=== PATIENT | female | born 1960 | race Caucasian/White ===

== ENCOUNTER 2017-01-07 08:29 | Outpatient (CLI) | payer BC ==
--- NOTE | 2017-01-07 15:12 | DEXA Report ---
DEXA SCAN: 01/07/2017 CLINICAL HISTORY: Postmenopausal. TECHNIQUE: Dual energy x-ray absorptiometry (DXA) was performed on a [employer] system. Regions measured are the AP spine, femoral neck, and, if needed, forearm. COMPARISON: None. In accordance with the International Society for Clinical Densitometry (ISCD) guidelines, data from previous exams may be reanalyzed using current recommendations and techniques. This is done to allow a more accurate basis for comparison with the current study. FINDINGS: The data for the lumbar spine is as follows: REGION BMD (g/cm/cm) T-SCORE Z-SCORE L1 0.849 -2.3 -1.2 L2 0.894 -2.5 -1.4 L3 0.942 -2.1 -1.0 L4 0.999 -1.7 -0.5 TOTAL 0.925 -2.1 -1.0 NOTE: All evaluable vertebrae are used for classification. The data for the hip is as follows: REGION BMD (g/cm/cm) T-SCORE Z-SCORE Neck 0.762 -2.0 -0.8 TOTAL 0.792 -1.7 -0.8 NOTE: The femoral neck or total proximal femur, whichever is lowest, is used for classification. * Denotes significant change at the 95% confidence level. Denotes dissimilar scan types or analysis methods. IMPRESSION: THE WHO CLASSIFICATION BASED ON THE INTERNATIONAL REFERENCE STANDARD IS OSTEOPENIA. THE FRACTURE RISK IS INCREASED. RECOMMENDATION: Patients with diagnosis of osteoporosis or osteopenia should have regular bone mineral density assessment. For those eligible for Medicare, routine testing is allowed once every 2 years. Testing frequency can be increased for patients who have rapidly progressing disease or for those who are receiving medical therapy to restore bone mass. COMMENT: World Health Organization (WHO) definitions for osteoporosis and osteopenia: NORMAL BMD: T-score at -1.0 or higher, fracture risk is low. OSTEOPENIA BMD: T-score between -1.0 and -2.5, fracture risk is increased. OSTEOPOROSIS BMD: T-score at -2.5 or lower, fracture risk high. National Osteoporosis Foundation recommends: 1. Obtain adequate dietary calcium (at least 1200 mg per day) and vitamin D (400 -800 international units per day). 2. Participate, as appropriate, in regular weightbearing and muscle- strengthening exercise. 3. Avoid tobacco use and reduce alcohol and caffeine intake. 4. For more detailed information see the website at www.NOF.org. MTDD
== END 2017-01-07 08:30 | disposition home or self-care (01) ==
LOC: DI 08:29
PROVIDERS: ATTEND Physician Assistant
DX: M85.89 Other specified disorders of bone density and structure, multiple sites (principal)
CPT/HCPCS: 77080

== ENCOUNTER 2017-01-16 10:10 | Outpatient (CLI) | payer BC ==
--- NOTE | 2017-01-18 13:55 | Mammography Report ---
DIGITAL SCREENING MAMMOGRAM: 01/16/2017 CLINICAL INDICATION: A 57-year-old with history of late childbearing, history of benign excisional b iopsy for screening. COMPARISON: 11/2012, 10/2011, 08/2010, 04/2009, 12/2006. TECHNIQUE: Routine CC and MLO projections were obtained of the breasts as well as bilateral laterall y exaggerated craniocaudal views. FINDINGS: The breasts again demonstrate heterogeneously dense fibroglandular parenchyma bilaterally. Punctate, typically benign calcifications are present. In the right upper outer posterior breast, there is a possible developing density. Further evaluation with spot compression views and possible ultrasound is recommended. No mammographically suspicious findings are appreciated in the left breas t. IMPRESSION: INCOMPLETE EXAMINATION. RECOMMENDATION: Additional evaluation of the right breast as above. BI-RADS category 0, incomplete. STANDARD QUALIFYING STATEMENTS 1. This examination was reviewed with the aid of Computer-Aided Detection (CAD). 2. A negative or benign imaging report should not delay biopsy if clinically suspicious findings are present. Consider surgical consultation if warranted. More than 5% of cancers are not identified by i maging. 3. Dense breasts may obscure an underlying neoplasm. JOB #: [id number] EXT JOB #:[id number]
== END 2017-01-16 10:11 | disposition home or self-care (01) ==
LOC: DI.S 10:10
PROVIDERS: ATTEND Physician Assistant
DX: Z12.31 Encounter for screening mammogram for malignant neoplasm of breast (principal); R92.8 Other abnormal and inconclusive findings on diagnostic imaging of breast
CPT/HCPCS: 77067

== ENCOUNTER 2017-02-13 13:14 | Outpatient (CLI) | payer BC ==
--- NOTE | 2017-02-13 15:54 | Ultrasound Report ---
RIGHT BREAST ULTRASOUND: 02/13/2017 CLINICAL INDICATION: Persistent nodule on mammogram. TECHNIQUE: Real-time scanning was performed with community representative static images obtained. FINDINGS: Ultrasound of the right outer breast was performed. At the 9:30 position, 7 cm from the nipple, there is a hypoechoic lobulated nodule measuring 1.2 x 0. 8 x 0.9 cm. The appearance is suspicious. Internal vascularity is seen. Scanning of the right axilla does not demonstrate lymphadenopathy. IMPRESSION: SUSPICIOUS SOLID NODULE IN THE RIGHT OUTER BREAST, CORRELATING WITH THE MAMMOGRAPHIC ABN ORMALITY. RECOMMENDATION: BIOPSY. THE NODULE APPEARS AMENABLE TO ULTRASOUND-GUIDED CORE NEEDLE BIOPSY. BIRADS CATEGORY 4-SUSPICIOUS ABNORMALITY. Results and recommendations discussed with the patient at the time of the examination, and called to the office of Jyothi Magallon PA-C, on 02/13/2017. Biopsy is scheduled for 02/20/2017 at 12:30 p.m. JOB #: [id number] EXT JOB #:[id number]
--- NOTE | 2017-02-13 16:06 | Mammography Report ---
DIGITAL DIAGNOSTIC RIGHT MAMMOGRAM: 02/13/2017 CLINICAL INDICATION: Possible developing density right posterior outer breast. TECHNIQUE: Right true lateral and spot compression views. COMPARISON: 01/16/2017, 12/08/2012, 10/18/2011, 08/25/2010, 05/02/2009, 2006. FINDINGS: The right breast again demonstrates scattered fibroglandular densities. The density in question, in the right outer posterior breast, does not dissipate on additional compression. It measures approximately 1 cm in diameter. No associated calcifications are seen. Please also refer to right breast ultrasound of the same day. IMPRESSION: SUSPICIOUS ABNORMALITY, WITH A SOLID SHADOWING NODULE ON ULTRASOUND CORRELATING WITH THE MAMMOGRAPHIC ABNORMALITY. RECOMMENDATION: BIOPSY. THE NODULE APPEARS AMENABLE TO ULTRASOUND-GUIDED CORE NEEDLE BIOPSY. BIRADS CATEGORY 4-SUSPICIOUS ABNORMALITY. Results and recommendations discussed with the patient at the time of the examination, and called to the office of Pricilla Magallon PA-C, on 2016. Biopsy is scheduled for 02/20/2017 at 12:30 p.m. STANDARD QUALIFYING STATEMENTS 1. This examination was reviewed with the aid of Computer-Aided Detection (CAD). 2. A negative or benign imaging report should not delay biopsy if clinically suspicious findings are present. Consider surgical consultation if warranted. More than 5% of cancers are not identified by imaging. 3. Dense breasts may obscure an underlying neoplasm. JOB #: [id number] EXT JOB #: [id number] DOYLE
== END 2017-02-13 13:15 | disposition home or self-care (01) ==
LOC: DI 13:14
PROVIDERS: ATTEND Physician Assistant
DX: N63 Unspecified lump in breast (principal)
CPT/HCPCS: 76642

== ENCOUNTER 2017-02-20 12:15 | Outpatient (CLI) | payer BC ==
[~2017-02-20 12:15] MED LIST: BUFFERED LIDOCAINE 10 ML SYRINGE IU ONE; BUPIVACAINE 0.5%-EPI 1:200000 PF 10 ML VIAL ID ONE
[2017-02-20 17:15] VITALS: BP 123/81
--- NOTE | 2017-02-21 09:17 | Ultrasound Report ---
ULTRASOUND-GUIDED CORE NEEDLE BIOPSY RIGHT BREAST: 02/20/2017 CLINICAL INDICATION: An 1.1 cm nodule right outer breast. FINDINGS: Informed consent was obtained. Using standard aseptic technique, both 1% buffered lidocain e and Sensorcaine were injected into the right breast for local anesthesia. A small heidi was made in the skin with a #11 blade. A 12-gauge Celero vacuum-assisted device was used to obtain three specimen s. A Celero marker was placed into the biopsy cavity under ultrasound guidance. The patient was taken to a separate mammography machine and a two view digital mammogram was performe d, documenting the marker in the expected location and no significant postbiopsy hematoma. The wound was dressed and ice applied. The patient was observed for approximately 15 minutes, then wa s discharged from [facility] in good condition following instructions on wound care and obtai dewayne biopsy results. The tissue was sent for histologic analysis. IMPRESSION: ULTRASOUND-GUIDED CORE NEEDLE BIOPSY OF THE RIGHT BREAST. AN ADDENDUM WILL BE MADE TO THIS REPORT WHEN PATHOLOGY IS REVIEWED TO ESTABLISH CONCORDANCE. :9 JOB #: [id number] EXT JOB #:[id number]
--- NOTE | 2017-03-11 11:09 | Mammography Report ---
EXAM: [id number] [place] EM[facility] ([id number]) ULTRASOUND-GUIDED CORE NEEDLE BIOPSY RIGHT BREAST: 02/20/2017 CLINICAL INDICATION: An 1.1 cm nodule right outer breast. FINDINGS: Informed consent was obtained. Using standard aseptic technique, both 1% buffered lidocaine and Sensorcaine were injected into the right breast for local anesthesia. A small heidi was made in the skin with a #11 blade. A 12- gauge Celero vacuum-assisted device was used to obtain three specimens. A Celero marker was placed into the biopsy cavity under ultrasound guidance. The patient was taken to a separate mammography machine and a two view digital mammogram was performed, documenting the marker in the expected location and no significant postbiopsy hematoma. The wound was dressed and ice applied. The patient was observed for approximately 15 minutes, then was discharged from [facility] in good condition following instructions on wound care and obtaining biopsy results. The tissue was sent for histologic analysis. IMPRESSION: ULTRASOUND-GUIDED CORE NEEDLE BIOPSY OF THE RIGHT BREAST. AN ADDENDUM WILL BE MADE TO THIS REPORT WHEN PATHOLOGY IS REVIEWED TO ESTABLISH CONCORDANCE. :9 JOB #: [id number] EXT JOB #: [id number] Process Control Supervisor: Reading Radiologist: Angel David MD Releasing Radiologist: Angel David MD Released Date Time: 02/21/17 0937 <Electronically signed by Angel David MD> cc: AURORA Black ADDENDUM ADDENDUM: ULTRASOUND-GUIDED CORE NEEDLE BIOPSY OF THE RIGHT BREAST OF 02/20/2017 ADDENDUM: The procedure performed by Dr. David. Pathology reviewed by Dr. David. Final pathology results are malignant, demonstrating invasive ductal carcinoma. These results are concordant with the imaging findings. RECOMMENDATION: SURGICAL FOLLOWUP WITH TREATMENT PLANNING. Consider preoperative breast MRI for surgical planning at the surgeon's discretion. The patient has been scheduled to obtain results from AYALA Trevizo on 02/26 at 8:30 a.m. END OF ADDENDUM Addendum Process Control Supervisor: AMINA Addendum Reading Radiologist: Angel David MD Addendum Releasing Radiologist: Angel David MD Addendum Released Date Time: 02/25/17 1327 MTDD
== END 2017-02-20 12:16 | disposition home or self-care (01) ==
LOC: DI 12:15
PROVIDERS: ATTEND Physician Assistant
DX: C50.911 Malignant neoplasm of unspecified site of right female breast (principal); Z17.0 Estrogen receptor positive status [ER+]
CPT/HCPCS: 19083; 88305; 88341; 88342; 88360

== ENCOUNTER 2017-12-02 10:29 | Day surgery (SDC) | payer OTHER ==
[2017-12-02] MEDS ORDERED: LACTATED RINGERS 1,000 ML IV ONE (10:53)
[2017-12-02] MEDS ORDERED: fentaNYL 250 MCG/5 ML VIAL IVP ONE (11:56)
[2017-12-02] MEDS ORDERED: MIDAZOLAM 2 MG/2 ML VIAL IVP ONE (11:56)
[2017-12-02 12:49] VITALS: BP 120/71
== END 2017-12-02 10:30 | disposition home or self-care (01) ==
LOC: SDS 10:29
PROVIDERS: ATTEND Surgery
PROC: 0DJD8ZZ Inspection of Lower Intestinal Tract, Via Natural or Artificial Opening Endoscopic (ICD-10-PCS; principal; 2017-12-02 11:45)
DX: Z12.11 Encounter for screening for malignant neoplasm of colon (principal); K64.8 Other hemorrhoids; Z80.0 Family history of malignant neoplasm of digestive organs
CPT/HCPCS: 45378; J7120

== ENCOUNTER 2019-09-01 08:08 | Outpatient (CLI) | payer BC, OTHER ==
--- NOTE | 2019-09-01 09:02 | XRAY Report ---
Reason: PAIN IN LT ARM Procedure Date: 09/01/2019 Accession Number: [id number] / [id number] Procedure: XRS - Humerus LT CPT Code: Final Report FULL RESULT: EXAM: LEFT HUMERUS RADIOGRAPHY EXAM DATE: 09/01/2019 08:30 AM. CLINICAL HISTORY: Left arm pain. COMPARISON: None. TECHNIQUE: 2 views. FINDINGS: Bones: Normal. No fractures or bone lesions. Joints: Normal. No effusions or subluxations in the visualized shoulder or elbow joints. Soft Tissues: Normal. No soft tissue swelling. IMPRESSION: Normal humerus radiography. RADIA
--- NOTE | 2019-09-01 09:02 | XRAY Report ---
Reason: PAIN IN LT SHLDR Procedure Date: 09/01/2019 Accession Number: [id number] / [id number] Procedure: XRS - Shoulder 3 View LT CPT Code: Final Report FULL RESULT: EXAM: LEFT SHOULDER RADIOGRAPHY EXAM DATE: 09/01/2019 08:30 AM. CLINICAL HISTORY: Left shoulder pain. COMPARISON: None. TECHNIQUE: 3 views. FINDINGS: Bones: Bones are questionably osteopenic. No fractures or bone lesions. Joints: Minimal glenohumeral joint degenerative disease is seen. Minimal acromioclavicular degenerative joint disease is seen. Alignment is preserved. Soft tissues: The visualized hemithorax is unremarkable. No soft tissue swelling. IMPRESSION: Minor shoulder DJD changes seen. Possible osteopenia. No acute findings. RADIA
== END 2019-09-01 08:09 | disposition home or self-care (01) ==
LOC: DI.S 08:08
PROVIDERS: ATTEND Registered Nurse
DX: M19.012 Primary osteoarthritis, left shoulder (principal); M79.602 Pain in left arm

== ENCOUNTER 2020-08-31 08:44 | Outpatient (CLI) | payer OTHER ==
--- OUTSIDE RECORDS SUMMARY | 2020-08-31 08:47 | EXTERNAL MEDICAL SUMMARY RPT | Continuity of Care Document ---
:1960 Demographics Phone Unavailable Preferred Language Unknown Marital Status Unknown Mu-Ism Affiliation Unknown Race Unknown Ethnic Group Unknown Author Organization [place] Address [address] [phone] Phone Care Team Providers Name Role Phone Magallon Unavailable Unavailable Problems date description facility 2017-12-02 10:29 OTHER HEMORRHOIDS [facility] 2017-12-02 10:29 ENCOUNTER FOR SCREENING FOR [facility] MALIGNANT NEOPLASM OF COLON 2017-12-02 10:29 [facility] NEOPLASM OF DIGESTIVE ORGANS 2019-09-01 08:08 PRIMARY OSTEOARTHRITIS, LEFT [facility] SHOULDER 2019-09-01 08:08 PAIN IN LEFT ARM [facility] Allergies date description facility NO KNOWN ALLERGIES [facility] ERYTHROMYCIN BASE [facility] Social History date description facility [id number]
--- NOTE | 2020-08-31 13:55 | DEXA Report ---
PROCEDURE: Dexa Spine and/or Hip INDICATIONS: OSTEOPENIA TECHNIQUE: Dual energy x-ray absorptiometry (DXA) was performed on a [employer] System. Regions measur ed are the AP Spine, femoral neck, and if needed forearm. COMPARISON: 01/07/2017. FINDINGS: Lumbar Spine: Bone Mineral Density 1.052 g/cm/cm,T score -1.1, osteopenia Left Femoral Neck: Bone Mineral Density 0.787 g/cm/cm, T score -1.8, osteopenia (T score greater or equal to -1.0: NORMAL) (T score from -1.1 to -2.4: OSTEOPENIA) (T score less than or equal to -2.5 to: OSTEOPOROSIS) Impression: Osteopenia; patient is at increased risk for fracture Patients with diagnosis of osteoporosis or osteopenia should have regular bone mineral density assess ment. For those eligible for Medicare, routine testing is allowed once every 2 years. Testing frequ ency can be increased for patients who have rapidly progressing disease or for those who are receivin g medical therapy to restore bone mass. Reviewed by: Rigoberto Cash MD on 08/31/2020 12:54 PM [place] Approved by: Rigoberto Cash MD on 08/31/2020 12:54 PM [place] Station ID: [id number]
== END 2020-08-31 08:45 | disposition home or self-care (01) ==
LOC: DI 08:44
PROVIDERS: ATTEND Registered Nurse
DX: M85.89 Other specified disorders of bone density and structure, multiple sites (principal)

== ENCOUNTER 2023-01-01 08:30 | Outpatient (CLI) | payer OTHER ==
--- NOTE | 2023-01-01 14:41 | DEXA Report ---
PROCEDURE: Dexa Spine and/or Hip INDICATIONS: OSTEOPENIA TECHNIQUE: Dual energy x-ray absorptiometry (DXA) was performed on a [employer] System. Regions measur ed are the AP Spine, femoral neck, and if needed forearm. COMPARISON: 08/31/2020 FINDINGS: Lumbar Spine: Bone Mineral Density 0.994 g/cm/cm,T score -1.5, compared to -1.1 Left Femoral Neck: Bone Mineral Density 0.725 g/cm/cm, T score -2.2, compared to -2.0 Left Hip: Bone Mineral Density 0.814 g/cm/cm,T score -1.5, compared to -1.8 (T score greater or equal to -1.0: NORMAL) (T score from -1.1 to -2.4: OSTEOPENIA) (T score less than or equal to -2.5 to: OSTEOPOROSIS) Impression: By WHO criteria, this patient has low bone density (osteopenia). of the lumbar spine. of the hip. It is progressive compared to prior exam in the spine and femoral ne ck and slightly improved in the left hip. Patients with diagnosis of osteoporosis or osteopenia should have regular bone mineral density assess ment. For those eligible for Medicare, routine testing is allowed once every 2 years. Testing frequ ency can be increased for patients who have rapidly progressing disease or for those who are receivin g medical therapy to restore bone mass. Reviewed by: Leona Torres MD on 01/01/2023 2:40 PM PDT Approved by: Leona Torres MD on 01/01/2023 2:40 PM PDT Station ID: [id number]
== END 2023-01-01 19:00 | disposition home or self-care (01) ==
LOC: DI 08:30
PROVIDERS: ATTEND Registered Nurse
DX: M85.89 Other specified disorders of bone density and structure, multiple sites (principal)

== ENCOUNTER 2023-09-13 11:13 | Outpatient (CLI) | payer OTHER ==
--- NOTE | 2023-09-13 16:23 | XRAY Report ---
PROCEDURE: Lumbar Spine 2-3V INDICATIONS: XRAY LOWER BACK TECHNIQUE: 2 views of the lumbar spine were acquired. COMPARISON: None. FINDINGS: Bones: 5 [id number] vertebrae are present. Grade 1 anterolisthesis L5 on S1. Trace retrolisthes is L1-2, L2-3, L3-4, and trace anterolisthesis L4-5. Mild left sacroiliac joint sclerosis. No vertebr al body compression fractures. No suspicious bony lesions. Soft tissues: Overlying bowel gas pattern is normal. No suspicious soft tissue calcifications. IMPRESSION: 1. Multilevel spondylolisthesis. Reviewed by: Maritza Mitchell MD on 09/13/2023 4:21 PM PST Approved by: Maritza Mitchell MD on 09/13/2023 4:21 PM PST Station ID: [id number]
--- NOTE | 2023-09-13 16:24 | XRAY Report ---
PROCEDURE: Thoracic Spine 2V INDICATIONS: LOW BACK PAIN TECHNIQUE: 3 views of the thoracic spine were acquired. COMPARISON: None. FINDINGS: Bones: No fractures or dislocations. Mild anterior disc space loss in the midthoracic spine. No jono picious bony lesions. 12 pairs of ribs are noted, and appear intact where visualized. Soft tissues: No paravertebral stripe thickening. IMPRESSION: 1. Mild disc degeneration. Reviewed by: Maritza Mitchell MD on 09/13/2023 4:23 PM PST Approved by: Maritza Mitchell MD on 09/13/2023 4:23 PM PST Station ID: [id number]
== END 2023-09-13 11:14 | disposition home or self-care (01) ==
LOC: DI.S 11:13
PROVIDERS: ATTEND Registered Nurse
DX: M51.34 Other intervertebral disc degeneration, thoracic region (principal); M43.16 Spondylolisthesis, lumbar region